=== PATIENT | male | born 1945 | race Caucasian/White ===

== ENCOUNTER 2018-07-31 10:49 | Inpatient (IN) | payer OTHER ==
[~2018-07-31] VITALS: Ht 177.8 cm; Wt 108.5 kg
--- NOTE | ~2018-07-31 | D ---
[facility] [place] [address] DISCHARGE SUMMARY Name: JOE BRYANT Room #: 209-P [facility] IN M.R.#: [id number] Admission: 07/31/18 ������������������ Attend Phys: Louis Adler MD Discharge: 08/10/18 ������������������ Date of : 41 Report #: [id number] THIS REPORT FOR: //name// CC: Louis Adler DATE OF SERVICE: 08/10/2018 FINAL DIAGNOSES: 1. Non-ST elevation myocardial infarction. 2. Coronary artery disease. 3. Cardiac bypass. 4. Diabetes type 2. 5. Hypertension. 6. Anemia of acute blood loss. HOSPITAL COURSE: The patient was admitted with chest pain, diagnosed with an NSTEMI. He was taken to the labor economics professor, which revealed diffuse coronary artery disease. Please see that result. He was recommended for cardiac bypass. He was stabilized and then taken to the operating room on the next available operating day, the following Friday. He tolerated the procedure well without incident other than the expected postoperative blood loss. His hemoglobin dipped down to 10.8, but rebounded to 12 by the time of discharge. Medically, he was treated in the usual fashion for diabetes, high blood pressure and coronary artery disease with statin, aspirin and blood pressure control. He is followed by the Cardiac and Cardiothoracic Services. He had no other interval complication. DISPOSITION: He will be transferred to a fdc unit for post-cardiac bypass rehabilitation. I have signed his transfer medications, orders and prepared all the transfer information from the facility. Follow up with me in a month after discharge from the facility and follow up with Dr. Campoverde in 2-[address] Oseguera in a month. ��������������������������������������������� ���������������������������������������� By: ��������������������������������������������� 0942 1357 Louis Adler MD /nt
[2018-07-31 10:51] VITALS: BP 141/87
[2018-07-31 11:32] LABS: ABSOLUTE NEUTROPHILS 4.5 thou/uL (1.4-8.2); BASOPHILS 0.5 % (0.0-2.0); EOSINOPHILS 3.1 % (0.0-3.0); HEMATOCRIT 44.6 % (42.0-52.0); HEMOGLOBIN 15.5 gm/dL (14.0-18.0); LYMPHOCYTES 19.7 % (24.0-44.0); MCH 30.6 pg (26.0-34.0); MCHC 34.7 g/dL (28.0-37.0); MCV 88.3 fL (80.0-100.0); MONOCYTES 11.3 % (1.0-8.0); POLYS 65.4 % (36.0-66.0); RBC 5.05 mil/uL (4.50-6.00); RDW 13.6 % (10.5-14.5); WBC 6.8 thou/uL (4.0-11.0)
[2018-07-31 11:38] LABS: CALCIUM 9.7 mg/dL (8.5-10.1); CREATININE 0.8 mg/dL (0.7-1.3); POTASSIUM 3.5 mmol/L (3.5-5.1)
[2018-07-31 11:48] LABS: TROPONIN-I 7.37 ng/mL (<0.06)
[2018-07-31 12:39] LABS: PROTIME 10.5 Seconds (9.3-11.4)
[2018-07-31 12:45] LABS: PLATELET COUNT 191 thou/uL (150-400)
[2018-07-31 13:40] VITALS: BP 124/74
[2018-07-31 13:47] VITALS: BP 131/79
--- NOTE | 2018-07-31 14:28 | 2DMMODE ---
[facility] [place] [address] 2 D/M-MODE ECHOCARDIOGRAM Name: JOE BRYANT Room #: 200-I ADM IN M.R.#: [id number] ������������� Admission: 07/31/18 ������������� Attend Phys: Rosalie Gaxiola Discharge: ��� ������������� ��� Date of : 41 Date of Service: 07/31/18 1427 �� Report #: [id number] �������� ��������������������������������������������[id number] THIS REPORT FOR: //name// APPROVED REPORT Study performed: 07/31/2018 13:12:07 EXAM: Comprehensive 2D, Doppler, and color-flow Echocardiogram Patient Location: ER Room #: 1 Status: stat BSA: 2.21 HR: 63 bpm BP: 131/79 mmHg Rhythm: NSR Other Information Study Quality: Adequate Indications Chest Pain Volumes Left Atrial Volume (Systole) Single Plane 4CH: 67.61 mL Single Plane 2CH: 61.27 mL LA ESV Index: 36.00 mL/m2 Aortic Valve AoV Peak Benedict.: 1.45 m/s AO Peak Gr.: 8.38 mmHg LVOT Max P.69 mmHg LVOT Max V: 0.96 m/s Mitral Valve E/A Ratio: 0.8 MV Decel. Time: 257.50 ms MV E Max Benedict.: 0.72 m/s MV A Benedict.: 0.87 m/s MV PHT: 74.68 ms IVRT: 156.86 ms Pulmonary Valve PV Peak Benedict.: 0.79 m/s PV Peak Gr.: 2.53 mmHg Pulmonary Vein P Vein S: 0.27 m/s P Vein A: 0.21 m/s [facility] [address] [place] [address] 2 D/M-MODE ECHOCARDIOGRAM Name: JOE BRYANT Room #: 200-I ADM IN [facility].#: [id number] ������������� Admission: 07/31/18 ������������� Attend Phys: Rosalie Gaxiola Discharge: ��� ������������� ��� Date of : 41 Date of Service: 07/31/18 1427 �� Report #: [id number] �������� ��������������������������������������������[id number] P Vein D: 0.17 m/s P Vein A Dur.: 129.2 msec P Vein S/D Ratio: 1.59 Tricuspid Valve TR Peak Benedict.: 2.06 m/s TR Peak Gr.: 16.91 mmHg PA Pressure: 17.00 mmHg Left Ventricle The left ventricle is normal size. There is normal left ventricular wall thickness. The left ventricular systolic function is normal. LVEF is 50%. Hypokinesis base of inferior and inferolateral [place] Mild diastolic dysfunction is present (impaired relaxation pattern). Right Ventricle The right ventricle is normal size. The right ventricular systolic function is normal. Atria Left atrium is dilated. The right atrium size is normal. Aortic Valve The aortic valve is normal in structure. No aortic regurgitation is present. There is no aortic valvular stenosis. Mitral Valve Mitral annular calcification Trace mitral regurgitation. No evidence of mitral valve stenosis. Tricuspid Valve The tricuspid valve is normal in structure. There is trace tricuspid regurgitation. Estimated PAP 17 mmHg plus the right atrial pressure. There is no pulmonary hypertension. Pulmonic Valve The pulmonary valve is normal in structure. There is no pulmonic valvular regurgitation. Great Vessels The aortic root is normal in size. IVC is not well visualized. Pericardium There is no pericardial effusion. [facility] [address] [place] [address] 2 D/M-MODE ECHOCARDIOGRAM Name: JOE BRYANT Room #: 200-I ADM IN .R.#: [id number] ������������� Admission: 07/31/18 ������������� Attend Phys: Rosalie Gaxiola Discharge: ��� ������������� ��� Date of : 41 Date of Service: 07/31/181426 �� Report #: [id number] �������� ��������������������������������������������[id number] <Conclusion> The left ventricular systolic function is at the lower limits of normal LVEF is 50%. Hypokinesis base of inferior and inferolateral [place] Mild diastolic dysfunction is present (impaired relaxation pattern). The aortic valve is normal in structure. No aortic regurgitation or stenosis. Mitral annular calcification. Trace mitral regurgitation. There is no pericardial effusion. ��������������������������������������������� <ELECTRONICALLY SIGNED> ���������������������������������������� By: Ochoa Hunter MD, FACC ��������������������������������������������� 07/31/18 142 26 1427 Ochoa Hunter MD, FACC /INF
[2018-07-31 15:36] LABS: ABSOLUTE NEUTROPHILS 5.9 thou/uL (1.4-8.2); BASOPHILS 0.6 % (0.0-2.0); EOSINOPHILS 2.1 % (0.0-3.0); HEMATOCRIT 45.1 % (42.0-52.0); HEMOGLOBIN 15.4 gm/dL (14.0-18.0); LYMPHOCYTES 18.6 % (24.0-44.0); MCH 30.5 pg (26.0-34.0); MCHC 34.2 g/dL (28.0-37.0); MCV 89.4 fL (80.0-100.0); MONOCYTES 10.6 % (1.0-8.0); POLYS 68.1 % (36.0-66.0); RBC 5.05 mil/uL (4.50-6.00); RDW 13.7 % (10.5-14.5); WBC 8.6 thou/uL (4.0-11.0)
[2018-07-31 15:44] VITALS: BP 122/80
--- NOTE | 2018-07-31 15:49 | CATHLAB ---
[facility] [address] [place] [address] INVASIVE PROCEDURE REPORT Name: JOE BRYANT Room #: 200-I ADM IN M.R.#: [id number] ������������� Admission: 07/31/18 ������������� Attend Phys: Rosalie Gaxiola Discharge: ��� ������������� ��� Date of : 41 Date of Service: 07/31/18 1548 �� Report #: [id number] �������� ��������������������������������������������[id number] THIS REPORT FOR: //name// APPROVED REPORT Study performed: 07/31/2018 13:32:35 Patient Details Patient Status: ED Room #: The patient is a 73 year-old male Event Personnel Jann Oseguera Environmental Professional, Eleanor Stewart RTR, CABLE TELEVISION ACCESS COORDINATOR Monitor, Donovan Gonzalez RN, Maria D Smith Procedures Performed Art Access - R femoral artery* Left Heart Cath w/or w/o Coronaries [id number] [facility] [address] Initial Mod Sed Same Phys/QHP Gr5y [id number] Hemostasis with Manual pressure Indication Non-STEMI , Dyspnea, Chest pain Risk Factors Hypercholesterolemia, Hypertension Procedure Narrative The Right Groin^ was infiltrated with 1% Lidocaine subcutaneous anesthesia. A PINNACLE 4FR Sheath #[id number] sheath was inserted into the RFA^. Coronary angiography was performed using coronary diagnostic catheters. The right coronary system was accessed and visualized with a JR4 catheter. The left coronary system was accessed and visualized with a JL4 catheter. The left ventricle was accessed and visualized with a ANGLE PIG catheter. Hemostasis was obtained with manual pressure following sheath removal without any complications. The patient tolerated the procedure well and there were no complications associated with the procedure. There was no hematoma. Intraoperative Conscious Sedation Sedation start time: 1356 Case end Time: 1440 Fentanyl 25 mcg Versed 1 mg Fluoro Time: 2.00 minutes [facility] [place] [address] INVASIVE PROCEDURE REPORT Name: MANNYJOE Room #: 200-I ADM IN [facility].#: [id number] ������������� Admission: 07/31/18 ������������� Attend Phys: Rosalie Gaxiola Discharge: ��� ������������� ��� Date of : 41 Date of Service: 07/31/18 1548 �� Report #: [id number] �������� ��������������������������������������������[id number] Dose: DAP 3439.90 cGycm2 453 mGy Contrast Type and Amount: Omnipaque 115 ml Coronary Angiography The patient's coronary anatomy is co- dominant. Diagnostic Cath Left Main This is a large caliber vessel, patent with no flow-limiting lesions. LAD After supplying a moderate size septal patternmaker plastics in the midsegment of the LAD, there is a subtotal occlusion. The mid and distal segments of the LAD are filled via collateral circulation. Diagonal 1 There is a severe occlusion in the proximal segment. Circumflex This is a codominant vessel. OM1 This is a moderate size caliber vessel with a severe proximal stenosis. OM2 This is a moderate size caliber vessel with a severe proximal stenosis. OM3 The distal vessel is a small-caliber vessel with moderate diffuse disease. Right Coronary This vessel is totally occluded in the proximal segment. R PDA This vessel is well filled via collateral circulation from the left coronary artery. Left Ventriculography The left ventricle is normal in size with decreased contractility. The left ventricular ejection fraction is estimated to be 40-45%. There is hypokinesis in the mid to apical inferior segment. Hemodynamics The aortic pressure is 133/74 mmHg with a mean of 98 mmHg. The left ventricular pressure is 145/11 mmHg with a mean of mmHg. The left ventricular end diastolic pressure is 28 mmHg. Conclusion 1. Severe multivessel coronary artery disease. 2. Mild to moderate segmental LV dysfunction. [facility] [address] [place] [address] INVASIVE PROCEDURE REPORT Name: JOE BRYANT Room #: 200-I ADM IN M.R.#: [id number] ������������� Admission: 07/31/18 ������������� Attend Phys: Rosalie Gaxiola Discharge: ��� ������������� ��� Date of : 41 Date of Service: 07/31/18 1548 �� Report #: [id number] �������� ��������������������������������������������[id number] 3. Recommend aggressive risk factor management and CV surgical consultation for bypass surgery. ��������������������������������������������� <ELECTRONICALLY SIGNED> ���������������������������������������� By: Jann Oseguera MD ��������������������������������������������� 07/31/18 1548 1548 1548 Jann Oseguera MD /INF
[2018-07-31 16:00] LABS: LARGE PLATELETS FEW; PLATELET COUNT 177 thou/uL (150-400)
--- NOTE | 2018-07-31 16:42 | EKG ---
[address] [address] ELECTROCARDIOGRAM REPORT Name: JOE BRYANT Room #: 200-I ADM IN M.R.#: [id number] ������������������ Admission: 07/31/18 ������������������ Attend Phys: Louis Adler MD Discharge: ������������������ Date of : 41 Report #: [id number] ����������������������������������������������������������������� [id number] THIS REPORT FOR: //name// [facility] ED Test Date: 2018-07-31 Test Time: 11:38:59 Pat Name: JOE BRYANT Department: Room: 200 Gender: M Radiologic Therapist: JASON : 1945 Requested By: Jamshid Johns Order Number: [id number] MD: Jann Oseguera Measurements Intervals [place] Rate: 67 P: -15 MA: 157 QRS: -41 QRSD: 97 T: 60 QT: 419 QTc: 443 Interpretive Statements Sinus rhythm Nonspecific ST segment abnormality Electronically Signed On 07-31-2018 16:42:49 CDT by Jann Oseguera [email or web address] ��������������������������������������������� <ELECTRONICALLY SIGNED> ���������������������������������������� By: Jann Oseguera MD ��������������������������������������������� 07/31/18 1642 1138 1138 Jann Oseguera MD /EPI
--- NOTE | 2018-07-31 16:44 | EKG ---
[place] [address] [facility] [place] [address] ELECTROCARDIOGRAM REPORT Name: JOE BRYANT Room #: 200-I ADM IN M.R.#: [id number] ������������������ Admission: 07/31/18 ������������������ Attend Phys: Louis Adler MD Discharge: ������������������ Date of : 41 Report #: [id number] ����������������������������������������������������������������� [id number] THIS REPORT FOR: //name// [facility] ED Test Date: 2018-07-31 Test Time: 11:59:35 Pat Name: JOE BRYANT Department: Room: 200 Gender: M Marketing Operations Manager: JASON : 1945 Requested By: Jamshid Johns Order Number: [id number] MD: Jann Oseguera Measurements Intervals [place] Rate: 66 P: -25 [place]: 153 QRS: -44 QRSD: 99 T: 61 QT: 422 QTc: 443 Interpretive Statements Sinus rhythm Left axis deviation Borderline low voltage, extremity leads No previous ECG available for comparison Electronically Signed On 07-31-2018 16:43:50 CDT by Jann Oseguera [email or web address] ��������������������������������������������� <ELECTRONICALLY SIGNED> ���������������������������������������� By: Jann Oseguera MD ��������������������������������������������� 07/31/18 1643 1159 1159 Jann Oseguera MD /GEOFFREY
--- NOTE | 2018-07-31 18:30 | NUR ---
PT TO THE UNIT POST CARDIAC CATH. NO INTERVENTION COMPLETED - PT NEEDING OPEN HEART SURGERY WHICH WILL BE DONE ON FRIDAY. SEEN BY DR DARDEN THIS AFTERNOON. ORDERES NOTED FOR SURGERY ON FRIDAY. GROIN STABLE - VSS - PETRA DIET AND FLUIDS. IV FLUIDS INFUCSION ORDERED - PT HAS VOIDED POST PROCEDURE. NO CO'S AT THE PRESENT TIME.
[2018-07-31 20:23] VITALS: BP 141/86
[2018-08-01 01:07] LABS: GLYCOHEMOGLOBIN (HGB A1C) 5.9 % (4.8-5.6)
[2018-08-01 01:08] VITALS: BP 154/81
[2018-08-01 04:05] VITALS: BP 132/80
[2018-08-01 05:01] LABS: HEMATOCRIT 42.8 % (42.0-52.0); HEMOGLOBIN 14.7 gm/dL (14.0-18.0); MCH 30.6 pg (26.0-34.0); MCHC 34.2 g/dL (28.0-37.0); MCV 89.5 fL (80.0-100.0); RBC 4.79 mil/uL (4.50-6.00); RDW 13.8 % (10.5-14.5); WBC 7.1 thou/uL (4.0-11.0)
--- NOTE | 2018-08-01 05:24 | NUR ---
ASSUMED PT CARE AT 1900 WITH BEDSIDE REPORT TAKEN. PT IS ALERT AND ORIENTED WITH NO SIGN OF DISTRESS NOTED IN PT. PT IS STABLE. VITAL SIGNS STABLE. RIGHT GROIN SITE FROM CARDIAC CATH IS CLEAN DRIED AND INTACT. SCHEDULED MEDS ADMINISTERED TO PT. PT IS STABLE THROUGHOUT THE NIGHT. DENIES ANY FURTHER NEEDS AT THIS TIME.
[2018-08-01 05:26] LABS: ALBUMIN 3.4 g/dL (3.4-5.0); ANION GAP 8 mmol/L (7-16); BUN 14 mg/dL (7-18); CALCIUM 8.4 mg/dL (8.5-10.1); CHLORIDE 103 mmol/L (98-107); CHOLESTEROL 146 mg/dL (<200); CO2 31 mmol/L (21-32); CREATININE 0.9 mg/dL (0.7-1.3); GLUCOSE 118 mg/dL (74-106); HDL CHOLESTEROL 42 mg/dL (>40); LDL CHOLESTEROL 86 mg/dL (<100); POTASSIUM 3.4 mmol/L (3.5-5.1); SGOT 65 U/L (15-37); SGPT 31 U/L (30-65); SODIUM 142 mmol/L (136-145); TC:HDL 3.5 Ratio (Not establshd); TOTAL BILIRUBIN 0.9 mg/dL (<0.1-1.0); TOTAL PROTEIN 6.4 g/dL (6.4-8.2); TRIGLYCERIDE 92 mg/dL (<150); VLDL 18 mg/dL (<40)
[2018-08-01 05:42] LABS: SERUM ASSESSMENT Clear
[2018-08-01 05:57] LABS: URINE BILIRUBIN NEGATIVE (Negative); URINE BLOOD NEGATIVE (Negative); URINE CLARITY CLEAR; URINE COLOR YELLOW; URINE GLUCOSE-RANDOM* NEGATIVE (Negative); URINE KETONES NEGATIVE (Negative); URINE LEUKOCYTES-REFLEX NEGATIVE (Negative); URINE NITRITE-REFLEX NEGATIVE (Negative); URINE PROTEIN (DIPSTICK) NEGATIVE (Negative); URINE UROBILINOGEN 0.2 E.U./dl (0.2-1.0)
--- NOTE | 2018-08-01 08:06 | H ---
[facility] [place] [address] HISTORY AND PHYSICAL Name: JOE BRYANT Room #: 200-I ADM IN M.R.#: [id number] Admission: 07/31/18 ������������������ Attend Phys: Louis Adler MD Discharge: ������������������ Date of : 41 Report #: [id number] THIS REPORT FOR: //name// CC: Louis Adler DATE OF SERVICE: 07/31/2018 CHIEF COMPLAINT: Chest pain. HISTORY OF PRESENT ILLNESS: The patient is a 73-year-old gentleman who presented to the Emergency Room with left-sided chest pain, radiating across to the right side, he said, for about the last day. He has had some upper respiratory symptoms with sinus drainage and productive cough and he has been using [id number] Coricidin HBP. He said he was out with his last night and was walking around and experienced left-sided chest pain. He thought it might have been from the medication, but the pain persisted all evening and through the night. He awoke with pain this morning and called me some time around 10:30 and I directed him to the Emergency Room. Evaluation has revealed a non-ST segment elevation myocardial infarction. PAST MEDICAL HISTORY: Hypertension; diabetes type 2, it is stable on diet control; peripheral neuropathy; chronic low back pain due to lumbar spinal stenosis. PAST SURGICAL HISTORY: None. FAMILY HISTORY: Noncontributory. SOCIAL HISTORY: Denies any chronic alcohol or tobacco use. ALLERGIES: CARDURA. MEDICATIONS: He does not have his home medication list available. REVIEW OF SYSTEMS: He complains of sinus drainage and nonproductive cough. No headache, shortness of breath, abdominal pain, nausea, vomiting, diarrhea, constipation, dysuria, syncope. OBJECTIVE: VITAL SIGNS: Temperature 36.9, pulse 77, respirations 16, blood pressure 141/87, O2 sat 98% on room air. GENERAL: He is awake and alert, in no distress. HEAD AND NECK: Unremarkable. LUNGS: Clear. HEART: Regular. ABDOMEN: Obese, soft, normoactive bowel sounds. [facility] [address] [place] [address] HISTORY AND PHYSICAL Name: JOE BRYANT Room #: 200-I ADM IN .R.#: [id number] Admission: 07/31/18 ������������������ Attend Phys: Louis Adler MD Discharge: ������������������ Date of : 41 Report #: [id number] EXTREMITIES: No edema. NEUROLOGIC: He is alert and oriented. Global strength intact. LABORATORY DATA: Reviewed. Troponin is 7.37. ASSESSMENT: 1. Non-ST segment elevation myocardial infarction. 2. Hypertension. 3. Obstructive sleep apnea, not on CPAP. 4. Diabetes type 2, on diet control. 5. Peripheral neuropathy. 6. Chronic low back pain due to lumbar spinal stenosis. PLAN: He will be admitted to CCU and Dr. Oseguera will see him in consultation. I understand there are plans for cardiac catheterization later today. ��������������������������������������������� <ELECTRONICALLY SIGNED> ���������������������������������������� By: Louis Adler MD ��������������������������������������������� 08/01/18 0806 1336 1400 Louis Adler MD /ada
[2018-08-01 08:47] VITALS: BP 139/73
--- NOTE | 2018-08-01 09:10 | EKG ---
[place] [address] [facility] [place] [address] ELECTROCARDIOGRAM REPORT Name: JOE BRYANT Room #: 200-I ADM IN M.R.#: [id number] ������������������ Admission: 07/31/18 ������������������ Attend Phys: Louis Adler MD Discharge: ������������������ Date of : 41 Report #: [id number] ����������������������������������������������������������������� [id number] THIS REPORT FOR: //name// [facility] Test Date: 2018-08-01 Test Time: 07:59:17 Pat Name: JOE BRYANT Department: Room: 200 I Gender: M Curriculum Manager: DEL : 1945 Requested By: Sue Campuzano Order Number: [id number] MD: Jann Oseguera Measurements Intervals [place] Rate: 67 P: -24 [place]: 155 QRS: -40 QRSD: 103 T: 105 QT: 399 QTc: 422 Interpretive Statements Sinus rhythm Abnormal R-wave progression, early transition Inferior infarct, old Nonspecific T-wave abnormalities Compared to ECG 07/31/2018 11:59:35 Left-axis deviation no longer present Electronically Signed On 08-01-2018 9:10:30 CDT by Jann Oseguera [email or web address] ��������������������������������������������� <ELECTRONICALLY SIGNED> ���������������������������������������� By: Jann Oseguera MD ��������������������������������������������� 08/01/18 0910 0759 0759 Jann Oseguera MD /GEOFFREY
[2018-08-01 11:52] VITALS: BP 132/71
--- NOTE | 2018-08-01 15:22 | NUR ---
PT IS ALERT AND ORIENTED X4. LUNGS ARE CLEAR. AND ON ROOM AIR. SITING UP IN THE CHAIR. NSR ON THE BOWLING PIN SETTERS INSTALLER. EATING A HEART HEALTHY DIET. VOIDS PER URINAL UP AD TEQUILA IN THE ROOM. NEEDS TO SHAVE AND TAKE A BATH TODAY WILL INSTRUCT PT TO TAKE AND BATH AND SHAVE BEING ITS NECESSARY. WILL CONTINUE TO ASSESS AND MONITOR PER KARLENE
[2018-08-01 15:43] VITALS: BP 131/76
[2018-08-01 19:40] VITALS: BP 142/97
--- NOTE | 2018-08-02 00:37 | NUR ---
ASSESSMENTS CHARTED. PATIENT IS UP AD TEQUILA IN ROOM. STAYING FOR CABG SCHEDULED FOR FRIDAY. CONSENTS SIGNED. DENIES CHEST PAIN.
[2018-08-02 02:08] LABS: GLYCOHEMOGLOBIN (HGB A1C) 6.2 % (4.8-5.6)
[2018-08-02 04:55] VITALS: BP 118/56
[2018-08-02 05:29] LABS: CALCIUM 8.6 mg/dL (8.5-10.1); CREATININE 0.8 mg/dL (0.7-1.3); POTASSIUM 3.5 mmol/L (3.5-5.1)
[2018-08-02 07:21] VITALS: BP 122/85
[2018-08-02 11:38] VITALS: BP 116/77
--- NOTE | 2018-08-02 14:48 | NUR ---
ASSUMED CARE AT SHIFT CHANGE ALERT AND ORIENTED X4. PLAESANT DENIES ANY DISCOMFORT AND VSS. AND WILL CONTINUE WITH POC
[2018-08-02 17:08] VITALS: BP 141/82
[2018-08-02 19:24] VITALS: BP 123/65
[2018-08-03] VITALS (9 sets, daily range): BP systolic 71–133; BP diastolic 40–87
--- NOTE | 2018-08-03 01:43 | NUR ---
ASSESSMENT CHARTED. PATIENT TOOK HIPACLENS SHOWER TONIGHT, TO BE REPEATED AT 0500 IN AM PRIOR TO CABG SURGERY. NPO SINCE MIDNIGHT. VSS.
[2018-08-03 03:40] LABS: HEMATOCRIT 41.5 % (42.0-52.0); HEMOGLOBIN 14.2 gm/dL (14.0-18.0); MCH 30.3 pg (26.0-34.0); MCHC 34.1 g/dL (28.0-37.0); RBC 4.67 mil/uL (4.50-6.00); RDW 13.2 % (10.5-14.5); WBC 8.7 thou/uL (4.0-11.0)
[2018-08-03 12:36] LABS: MCH 30.7 pg (26.0-34.0); MCHC 34.8 g/dL (28.0-37.0); MCV 88.3 fL (80.0-100.0); RBC 3.27 mil/uL (4.50-6.00); RDW 13.1 % (10.5-14.5); WBC 12.8 thou/uL (4.0-11.0)
[2018-08-03 12:38] LABS: HEMATOCRIT 28.9 % (42.0-52.0); HEMOGLOBIN 10.1 gm/dL (14.0-18.0)
[2018-08-03 12:54] LABS: INR 1.4
[2018-08-03 12:55] LABS: APTT 31.2 Seconds (24.5-32.8); FIBRINOGEN 251.7 mg/dL (210-360); PROTIME 14.5 Seconds (9.3-11.4)
[2018-08-03 13:14] LABS: POC BE 5 mmol/L (-2.0 to +3.0); POC CA IONIZED 4.1 mg/dL (4.5-5.3); POC GLUCOSE 173 mg/dL (70-99); POC HCO3 28.4 mmol/L (22.0-26.0); POC HEMOGLOBIN 9.5 g/dL (14.0-18.0); POC POTASSIUM 3.8 mmol/L (3.5-5.1); POC SODIUM 140 mmol/L (136-145); POC pCO2 37.5 mmHg (35.0-45.0); POC pH 7.487 (7.360-7.450)
[2018-08-03 13:14] LABS: POC BE 5 mmol/L (-2.0 to +3.0); POC CA IONIZED 4.4 mg/dL (4.5-5.3); POC GLUCOSE 138 mg/dL (70-99); POC HCO3 28.5 mmol/L (22.0-26.0); POC HEMOGLOBIN 12.6 g/dL (14.0-18.0); POC POTASSIUM 3.6 mmol/L (3.5-5.1); POC SODIUM 140 mmol/L (136-145); POC pH 7.494 (7.360-7.450)
[2018-08-03 13:14] LABS: POC BE -1 mmol/L (-2.0 to +3.0); POC CA IONIZED 4.3 mg/dL (4.5-5.3); POC GLUCOSE 147 mg/dL (70-99); POC HCO3 23.9 mmol/L (22.0-26.0); POC HEMOGLOBIN 11.2 g/dL (14.0-18.0); POC POTASSIUM 3.3 mmol/L (3.5-5.1); POC SODIUM 142 mmol/L (136-145); POC pH 7.418 (7.360-7.450)
[2018-08-03 13:14] LABS: POC BE 2 mmol/L (-2.0 to +3.0); POC CA IONIZED 4.1 mg/dL (4.5-5.3); POC GLUCOSE 166 mg/dL (70-99); POC HCO3 26.2 mmol/L (22.0-26.0); POC HEMOGLOBIN 8.8 g/dL (14.0-18.0); POC POTASSIUM 3.9 mmol/L (3.5-5.1); POC SODIUM 139 mmol/L (136-145); POC pCO2 37.7 mmHg (35.0-45.0)
[2018-08-03 13:14] LABS: POC BE 1 mmol/L (-2.0 to +3.0); POC CA IONIZED 4.1 mg/dL (4.5-5.3); POC GLUCOSE 134 mg/dL (70-99); POC HCO3 25.2 mmol/L (22.0-26.0); POC HEMOGLOBIN 10.2 g/dL (14.0-18.0); POC SODIUM 140 mmol/L (136-145); POC pCO2 39.4 mmHg (35.0-45.0); POC pH 7.414 (7.360-7.450)
[2018-08-03 13:14] LABS: POC BE 5 mmol/L (-2.0 to +3.0); POC GLUCOSE 137 mg/dL (70-99); POC HCO3 29.2 mmol/L (22.0-26.0); POC HEMOGLOBIN 10.2 g/dL (14.0-18.0); POC SODIUM 139 mmol/L (136-145); POC pCO2 41.2 mmHg (35.0-45.0); POC pH 7.459 (7.360-7.450)
[2018-08-03 13:14] LABS: POC BE 6 mmol/L (-2.0 to +3.0); POC CA IONIZED 4.1 mg/dL (4.5-5.3); POC GLUCOSE 175 mg/dL (70-99); POC HCO3 29.4 mmol/L (22.0-26.0); POC HEMOGLOBIN 9.9 g/dL (14.0-18.0); POC POTASSIUM 3.8 mmol/L (3.5-5.1); POC SODIUM 139 mmol/L (136-145); POC pCO2 39.9 mmHg (35.0-45.0); POC pH 7.475 (7.360-7.450)
[2018-08-03 13:14] LABS: POC BE 3 mmol/L (-2.0 to +3.0); POC CA IONIZED 4.3 mg/dL (4.5-5.3); POC GLUCOSE 138 mg/dL (70-99); POC HCO3 27.9 mmol/L (22.0-26.0); POC HEMOGLOBIN 11.9 g/dL (14.0-18.0); POC POTASSIUM 3.7 mmol/L (3.5-5.1); POC SODIUM 139 mmol/L (136-145); POC pCO2 44.7 mmHg (35.0-45.0); POC pH 7.403 (7.360-7.450)
[2018-08-03 13:14] LABS: POC BE -1 mmol/L (-2.0 to +3.0); POC CA IONIZED 4.5 mg/dL (4.5-5.3); POC GLUCOSE 163 mg/dL (70-99); POC HCO3 23.5 mmol/L (22.0-26.0); POC HEMOGLOBIN 9.5 g/dL (14.0-18.0); POC POTASSIUM 3.3 mmol/L (3.5-5.1); POC SODIUM 141 mmol/L (136-145); POC pCO2 34.8 mmHg (35.0-45.0); POC pH 7.437 (7.360-7.450)
[2018-08-03 13:33] LABS: BE(vivo) -2.6 mmol/L (-2 to +3); HCO3 21.8 mmol/L (22.0-26.0); PCO2 36.6 mmHg (35.0-45.0); PO2 114.6 mmHg (80.0-100.0); pH 7.393 (7.360-7.450); sO2 98.2 % (92.0-98.0)
[2018-08-03 13:41] LABS: HEMOGLOBIN 11.8 gm/dL (14.0-18.0); MCH 30.8 pg (26.0-34.0); MCHC 34.6 g/dL (28.0-37.0); MCV 88.9 fL (80.0-100.0); RBC 3.82 mil/uL (4.50-6.00); RDW 13.6 % (10.5-14.5); WBC 14.3 thou/uL (4.0-11.0)
[2018-08-03 13:50] LABS: CALCIUM 7.6 mg/dL (8.5-10.1); CREATININE 0.9 mg/dL (0.7-1.3); MAGNESIUM 2.5 mg/dL (1.8-2.4); POTASSIUM 3.3 mmol/L (3.5-5.1)
[2018-08-03 13:55] LABS: INR 1.2; PROTIME 12.8 Seconds (9.3-11.4)
--- NOTE | 2018-08-03 15:35 | NUR ---
PATIENT BACK FROM O.R. AT 1330 S/P CABG X5, ON THE VENT AND SEDATED. TITRATING SEDATION TOLERATED FOR VENT MANAGEMENT. WAS HYPOTENSIVE INITIALLY AND ALBUMIN ADMINISTERED AND STARTED ON LEVO FOR ABOUT AN HOUR. NOW BP STABLE AND C.O AND C.I WITHIN NORMAL LIMITS. MEDICATED FOR PAIN WITH PRN MEDS. SWAN YAMILA, A-LINE, CHEST TUBES, AND BEKA VAC DOCUMENTED. PACEMAKER WAS ON WITH BACK UP RATE OF 60 INITIALLY AND TURNED DOWN TO 50. PATIENT IS AT R. SPOUSE UPDATED. WILL CONTINUE TO MONITOR CLOSELY AND START THE PROCESS OF EARLY EXTUBATION WHEN MORE AWAKE.
[2018-08-03 16:21] LABS: BE(vivo) -2.2 mmol/L (-2 to +3); HCO3 22.8 mmol/L (22.0-26.0); PCO2 39.9 mmHg (35.0-45.0); PO2 102.4 mmHg (80.0-100.0); pH 7.375 (7.360-7.450); sO2 97.6 % (92.0-98.0)
--- NOTE | 2018-08-03 16:38 | NUR ---
CPAP TRIAL SUCCESSFUL, ABG RESULTS REVIEWED AND PATIENT EXTUBATED AT 1630 BY R.T. AND PLACED ON FACE SHIELD.
--- NOTE | 2018-08-03 16:53 | HC ---
[facility] [place] [address] CONSULTATION Name: JOE BRYANT Room #: 244-P ADM IN M.R.#: [id number] Admission: 07/31/18 ������������������ Attend Phys: Louis Adler MD Discharge: ������������������ Date of : 43 Report #: [id number] THIS REPORT FOR: //name// CC: Louis Adler DATE OF SERVICE: 07/31/2018 REQUESTING PHYSICIAN: We were asked by Dr. Oseguera to see the patient. HISTORY OF PRESENT ILLNESS: The patient is a 73-year-old with coronary artery disease. The patient presented with a new symptom which is chest pain radiating across the upper chest to the right side, happening at rest. The patient also states he had some upper respiratory symptoms and sinus drainage and had been taking gezz-kmk-fxbavyk cold medicine. The patient had persistence of the pain and came to the Emergency Department. Evaluation in the ER showed a non-ST elevation myocardial infarct. HOSPITAL COURSE: Includes cardiac catheterization today that shows important 3-vessel coronary artery disease with total occlusion of the mid right coronary artery, total occlusion of the mid left anterior descending with distal filling by collaterals and high-grade lesions in two circumflex marginals. There was anterior wall akinesis, but ejection fraction has been described at 50%. PAST HISTORY: Significant for hypertension, diabetes mellitus type 2 with peripheral neuropathy and chronic low back pain. The patient also has sleep apnea and has had uvulectomy. FAMILY HISTORY: Reveals father had coronary artery bypass surgery, in his 70s. Mother in her 90s with a stroke. SOCIAL HISTORY: The patient denies chronic alcohol or tobacco use. ALLERGIES: CARDURA. MEDICATION AT HOME: Includes Neurontin, Norvasc, irbesartan, Xalatan, ____ and Medox. REVIEW OF SYSTEMS: GENERAL: The patient denies fatigue or fever. HEAD: No headaches. EYES: No visual change. ENT: The patient has had sinus drainage and cough. PULMONARY: Nonproductive cough with chest pain as mentioned. CARDIAC: As mentioned chest pain, no palpitations. GASTROINTESTINAL: No nausea, vomiting blood. GENITOURINARY: No urgency, frequency, blood. [facility] [address] [place] [address] CONSULTATION Name: JOE BRYANT Room #: 244-P [facility] IN M.R.#: [id number] Admission: 07/31/18 ������������������ Attend Phys: Louis Adler MD Discharge: ������������������ Date of : 43 Report #: [id number] MUSCULOSKELETAL: Denies bone and joint problems. NEUROLOGIC: Complains of peripheral neuropathy in feet and in the fifth finger of the left hand. ENDOCRINE: No goiter. No tremors. HEMATOLOGIC: No anemia, no bruisability. PSYCHIATRIC: No depression, no anxiety. PHYSICAL EXAMINATION: GENERAL: The patient is a pleasant fellow with an endomorphic habitus. VITAL SIGNS: Temperature 36.5, blood pressure 122/80, heart rate 66, respiratory rate 18, O2 sat 100 on room air. HEENT: No scleral icterus, no arcus. Full coe present. NECK: No mass, no bruit. CHEST: Clear. HEART: Rhythm is regular. Heart tones somewhat distant with increased AP diameter of chest. ABDOMEN: Soft, no mass, no tenderness. EXTREMITIES: No clubbing, cyanosis or edema, 2+ right posterior tibial pulse and 2+ left dorsalis pedis pulse. No obvious saphenous vein problems. SKIN: No rash or infection. MUSCULOSKELETAL: No bony or limb asymmetry or deformity. PSYCHIATRIC: Oriented and appropriate, shows insight into problem, answers questions appropriately ASSESSMENT AND PLAN: The patient has important 3-vessel coronary artery disease with mildly reduced ventricular function and history of diabetes mellitus in the setting of a non-ST elevation infarct. Risks and details of coronary artery bypass surgery were discussed. Options and alternatives were reviewed. The patient understands that risks include but are not limited to bleeding, infection, anesthesia risks, heart and lung problems, stroke and and he wishes to proceed with surgery as advised. We plan operation for Friday morning. Thank you for the consult. ��������������������������������������������� <ELECTRONICALLY SIGNED> ���������������������������������������� By: Orlando Campoverde MD ��������������������������������������������� 08/03/18 1653 1559 190 Orlando Campoverde MD /nt
[2018-08-03 17:36] LABS: BE(vivo) -2.9 mmol/L (-2 to +3); HCO3 21.2 mmol/L (22.0-26.0); PCO2 34.7 mmHg (35.0-45.0); PO2 91.3 mmHg (80.0-100.0); pH 7.404 (7.360-7.450); sO2 97.1 % (92.0-98.0)
[2018-08-04] VITALS (16 sets, daily range): BP systolic 81–113; BP diastolic 45–62
[2018-08-04 05:36] LABS: HEMATOCRIT 33.8 % (42.0-52.0); HEMOGLOBIN 11.2 gm/dL (14.0-18.0); MCH 30.7 pg (26.0-34.0); MCHC 33.3 g/dL (28.0-37.0); MCV 92.3 fL (80.0-100.0); RBC 3.66 mil/uL (4.50-6.00); RDW 13.9 % (10.5-14.5); WBC 11.5 thou/uL (4.0-11.0)
[2018-08-04 05:48] LABS: CALCIUM 7.7 mg/dL (8.5-10.1); CREATININE 0.9 mg/dL (0.7-1.3); MAGNESIUM 2.6 mg/dL (1.8-2.4); POTASSIUM 3.6 mmol/L (3.5-5.1)
--- NOTE | 2018-08-04 06:41 | NUR ---
ASSUMED CARE OF PT AT 1900. PT ALERT AND ORIENTED X4. SR ON THE MONITOR. PT ON LOW DOSE CARDENE THROUGH OUT THE NIGHT. TITRATED OFF AT 0600. VSS. GOOD UO. PT C/O CHEST PAIN THROUGH OUT SHIFT. PAIN MEDS GIVEN ORDERED. SURGICAL DRESSING C/D/I. THIS AM PT WAS ABLE TO GET UP TO CHAIR AND SIT. TOLERATING WELL. PT MAKING GOOD PROGRESS TOWARDS GOALS.
--- NOTE | 2018-08-04 09:06 | NUR ---
Nutrition: RD received consult for diet instruction POD [address] will followup to determine education needs when out of ICU/closer to D/C.
--- NOTE | 2018-08-04 11:02 | NUR ---
PATIENT REMAINS A&O X 4, PLEASANT AND COOPERATIVE WITH CARES. HAS NOT REALLY C/O MUCH PAIN. MOST OF HIS PAIN IS COMING FROM LEFT LATERAL CHEST TUBE SITE. SWAN AND ART LINE DISCONTINUED PER ORDERS. PATIENT TOLERATED IT WELL. PATIENT UP IN CHAIR AND STATES THAT HE LIKES IT BETTER THAN THE BED. PATIENT KWIFE AT BEDSIDE FOR MOST OF THE MORNING, PATIENT AND FUSS AND AGRUE FREQUENTLY. NO OTHER CONCERNS AT THIS TIME. WILL CONTINUE TO MONITOR AND CARE PER PLAN OF CARE.
--- NOTE | 2018-08-04 14:27 | NUR ---
Met with patient he admits with chest pain, CAD and post CABG in ICU. 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 He has a cane as needed. 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 He lives alone in multilevel home. He has steps to bedroom. Reviewed role of casemgt PCP Dr Adler. Isela zimmer in process, casemgt following.
--- NOTE | 2018-08-04 17:01 | EKG ---
[address] [place] [address] ELECTROCARDIOGRAM REPORT Name: JOE BRYANT Room #: 244-P ADM IN M.R.#: [id number] ������������������ Admission: 07/31/18 ������������������ Attend Phys: Louis Adler MD Discharge: ������������������ Date of : 43 Report #: [id number] ����������������������������������������������������������������� [id number] THIS REPORT FOR: //name// 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: Rosalie MAYES : 1945 Requested By: Darrell Whalen Order Number: [id number] MD: Ochoa Hunter Measurements Intervals [place] Rate: 72 P: 42 [place]: 186 QRS: -23 QRSD: 94 T: QT: 411 QTc: 450 Interpretive Statements Sinus rhythm Early R-wave progression Inferior infarct, old Compared to ECG 08/01/2018 07:59:17 No significant change was found Electronically Signed On 08-04-2018 17:00:54 CDT by Ochoa Hunter [email or web address] ��������������������������������������������� <ELECTRONICALLY SIGNED> ���������������������������������������� By: Ochoa Hunter MD, [facility] ��������������������������������������������� 08/04/18 1700 1503 1503 Ochoa Hunter MD, FAC /EPI
[2018-08-05] VITALS (19 sets, daily range): BP systolic 92–147; BP diastolic 48–81
[2018-08-05 05:33] LABS: HEMATOCRIT 31.5 % (42.0-52.0); HEMOGLOBIN 10.8 gm/dL (14.0-18.0); MCH 30.7 pg (26.0-34.0); MCHC 34.3 g/dL (28.0-37.0); MCV 89.4 fL (80.0-100.0); RBC 3.52 mil/uL (4.50-6.00); RDW 13.7 % (10.5-14.5); WBC 11.5 thou/uL (4.0-11.0)
[2018-08-05 05:42] LABS: CALCIUM 7.8 mg/dL (8.5-10.1); CREATININE 1.2 mg/dL (0.7-1.3); POTASSIUM 3.7 mmol/L (3.5-5.1)
--- NOTE | 2018-08-05 07:05 | NUR ---
SHIFT NOTE PT ALERT AND ORRIENTED. SITTING IN CHAIR TRANSFERED ASSISTX1 TO BED. TURNED Q2H AND PRN. PT CLEANED UP DURING SHIFT. COMPLAINTS OF PAIN MEDS GIVEN ORDERED. BP WATCH CLOSELY DURING SHIFT. NO COMPLAINTS OF N/V CHEST PAIN, OR SOA. PT CHEST PT TO -20 NO S/SX OF AIR LEAK, SUBQ AIR, AND CT UNCLAMPED. PT O2 TITRATED DURSING SHIFT. PT WILL CONTINUE TO BE MONITORED TILL THE END OF THE SHIFT.
--- NOTE | 2018-08-05 15:07 | NUR ---
PACER WIRES AND PLEURAL CHEST TUBE REMOVED BY JESSICA WU. PT TOLERATED WELL. PT UP TO CHAIR TWICE AND HAS AMBULATED IN HALLWAY THIS SHIFT. PAIN MEDS EFFECTIVE. ORDERS FOR TRANSFER TO CCU, AWAITING BED
[2018-08-06 00:15] VITALS: BP 142/70
--- NOTE | 2018-08-06 00:30 | NUR ---
PT HAD CABG X5 TWO DAYS AGO. PT IS UP IN THE CHAIR AND REPORTED NO PAIN UNTIL MN; AT MN, PT C/O MODERATE PAIN IN ABD. PT C/O FEELING BLOATED AND SAID HE NEEDS TO HAVE A BM, BUT HAS NOT BEEN ABLE TO. PT WAS GIVEN MIRALAX DURING DAYSHIFT. PT ENCOURAGED TO USE INCENTIVE SPIROMETER. PT WAS ON SOME O2 PER NC DUE TO O2 DESATURATION WHILE SLEEPING DURING THE DAY. PT TX'D TO CCU SHORTLY AFTER MN. REPORT GIVEN AT 1610.
[2018-08-06 04:45] VITALS: BP 134/66
--- NOTE | 2018-08-06 04:48 | NUR ---
PT. TRANSFER FROM ICU AT 0000; AOX4; C/O ABDOMINAL; ST. NO ABLE TO PASS GAS FREQUENTLY; DRESSINGS DRY INTACT; NO DRAINAGE; VS WNL; EDUCATED ABOUT CALLING BEFORE STANDING UP; ST. UNDERSTANDING; REQUESTED TO USE THE BED SIDE COMMODE; ST. PASSING LITTLE GAS; VS WNL; SR THROUGH THE NIGHT; ASSESSMENT CHARGED; FOLLOWING POC; WILL KEEP MONITORING
[2018-08-06 08:00] VITALS: BP 143/72
--- NOTE | 2018-08-06 09:26 | EKG ---
[address] [place] [address] ELECTROCARDIOGRAM REPORT Name: JOE BRYANT Room #: 209-P ADM IN M.R.#: [id number] ������������������ Admission: 07/31/18 ������������������ Attend Phys: Louis Adler MD Discharge: ������������������ Date of : 43 Report #: [id number] ����������������������������������������������������������������� [id number] THIS REPORT FOR: //name// 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 : 1945 Requested By: Darrell Whalen Order Number: [id number] MD: Ochoa Hunter Measurements Intervals [place] Rate: 79 P: 5 [place]: 155 QRS: -31 QRSD: 90 T: -27 QT: 399 QTc: 458 Interpretive Statements Sinus rhythm Inferior infarct, old Abnormal lateral Q waves Compared to ECG 08/01/2018 07:59:17 Q waves now present Electronically Signed On 08-06-2018 9:25:55 CDT by Ochoa Hunter [email or web address] ��������������������������������������������� <ELECTRONICALLY SIGNED> ���������������������������������������� By: Ochoa Hunter MD, [facility] ��������������������������������������������� 08/06/18 0925 8 8 Ochoa Hunter MD, FAC /EPI
[2018-08-06 12:11] VITALS: BP 111/62
--- NOTE | 2018-08-06 12:16 | O ---
[facility] [place] [address] OPERATIVE REPORT Name: JOE BRYANT Room #: 209-P ADM IN M.R.#: [id number] Admission: 07/31/18 ������������������ Attend Phys: Louis Adler MD Discharge: ������������������ Date of : 43 Report #: [id number] THIS REPORT FOR: //name// CC: Louis Adler DATE OF SERVICE: 08/03/2018 PREOPERATIVE DIAGNOSIS: Coronary artery disease. POSTOPERATIVE DIAGNOSIS: Coronary artery disease. OPERATION: Coronary artery bypass x 5 including left internal mammary artery to left anterior descending artery, saphenous vein to diagonal, marginal 1, and marginal 2 and saphenous vein to posterior descending artery and endoscopic harvest, left greater saphenous vein. SURGEON: Orlando Campoverde M.D. FILM PRODUCER: JESSICA Hartman. ANESTHESIA: General. INDICATIONS: The patient is a 73-year-old with severe 3-vessel coronary artery disease, but had good ventricular function. The patient was seen for Dr. Oseguera. The patient presents with unstable angina. Catheterization demonstrates total occlusion of the LAD and right coronary arteries with collateral filling and high-grade lesions in the diagonals and marginal. FINDINGS AND TECHNIQUE: After general anesthesia was established, saphenous vein was harvested using an endoscopic approach. Exposure was obtained through median sternotomy. Left internal mammary artery was harvested. Pericardial well was made. Cannulation sutures were placed. Heparin was given. Aorta was cannulated. Right atrium was cannulated. Cardioplegia needle was positioned in the aortic root. Retrograde cardioplegic catheter was placed in the coronary sinus. Cardiopulmonary bypass was established. The aorta was cross clamped. Antegrade and then retrograde cardioplegia were given. Ice was poured into the pericardial well. The heart was stopped. During electromechanical arrest, the distal anastomoses were performed and end-to-side anastomosis was made between vein and the posterior descending artery. This was an intramyocardial vessel where bypassed and measured approximately 1.6 mm. Cold cardioplegia was given. Separate segment of vein was sewn in end-to-side fashion to the second marginal. It should be mentioned that all of the vessels were diffusely diseased, but we picked the optimum spot visually for bypass. Second marginal was a 1.5 mm vessel. Cold cardioplegia was given. After the anastomosis was complete, the same segment of vein was [facility] [address] [place] [address] OPERATIVE REPORT Name: JOE BRYANT Room #: 209-P [facility] IN M.R.#: [id number] Admission: 07/31/18 ������������������ Attend Phys: Louis Adler MD Discharge: ������������������ Date of : 43 Report #: [id number] sewn in end-to-side fashion to the first marginal. This was a 1.5 mm vessel. Cold cardioplegia was given. The same segment of vein was sewn in vrzu-hf-yjzy fashion to the second diagonal. This was a 1.4 mm vessel. Cold cardioplegia was given. Left internal mammary artery was sewn in end-to-side fashion to the distal left anterior descending artery where it measured approximately 1.6 mm. The anastomosis was checked with the temperature technique. Cold cardioplegia was given. Two proximal anastomoses were performed. When these were complete, warm retrograde cardioplegia was given followed by warm continuous blood to the coronary sinus. When this infusion was complete, the crossclamp was removed, de-airing maneuvers were performed. The anastomoses were inspected and found to be satisfactory. As the patient warmed, nice cardiac activity resumed, chest tubes and pacing wires were placed. A marker was placed around the proximal anastomoses. When the patient was warmed, he was weaned from cardiopulmonary bypass. Venous cannula was removed. Protamine was given, the aortic cannula was removed. Flows were measured in the bypass grafts. When hemostasis was satisfactory, chest was irrigated with antibiotic solution and closed in the usual fashion. The patient was taken to the intensive care unit in good condition. All counts reported as correct. ��������������������������������������������� <ELECTRONICALLY SIGNED> ���������������������������������������� By: Orlando Campoverde MD ��������������������������������������������� 08/06/18 1216 1658 1715 Orlando Campoverde MD /nt
--- NOTE | 2018-08-06 13:59 | NUR ---
ASSUMMED CARE AT SHIFT CHANGE, ALERT AND ORIENTED X4. UP TO CHAIR MOST OF THE DAY. C/O ABD PAIN MEDICATED, DULCOLEX SUPPOSITORY GIVEN, AND MEDICATED FOR PAIN. VSS AND AFEBRILE. NS ON THE MONITOR. DRESSING TO CHEST AND LLE INTACT. PROGRESSING TOWARDS GOALS AND WILL CONTINUE WITH POC.
[2018-08-06 16:00] VITALS: BP 120/64
--- NOTE | 2018-08-06 17:18 | EKG ---
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 Tank House: Eric ORR : 1945 Requested By: Nnamdi Pineda Order Number: [id number] MD: Gregor Chang Measurements Intervals [place] Rate: 84 P: 2 [place]: 163 QRS: -27 QRSD: 75 T: QT: 429 QTc: 508 Interpretive Statements Sinus rhythm Atrial premature complex Abnormal R-wave progression, early transition Inferior infarct, old Compared to ECG 08/04/2018 07:29:21 Electronically Signed On 08-06-2018 17:17:58 CDT by Gregor Chang [email or web address] ��������������������������������������������� <ELECTRONICALLY SIGNED> ���������������������������������������� By: Gregor Chang MD ��������������������������������������������� 08/06/18 9637 1351 135 Gregor Chang MD /EPI
[2018-08-06 20:34] VITALS: BP 122/69
[2018-08-07 04:47] VITALS: BP 113/74
[2018-08-07 04:57] LABS: CALCIUM 8.1 mg/dL (8.5-10.1); CREATININE 0.9 mg/dL (0.7-1.3)
[2018-08-07 05:02] LABS: HEMATOCRIT 34.4 % (42.0-52.0); HEMOGLOBIN 12.1 gm/dL (14.0-18.0); MCH 31.2 pg (26.0-34.0); MCHC 35.1 g/dL (28.0-37.0); MCV 88.9 fL (80.0-100.0); RBC 3.87 mil/uL (4.50-6.00); RDW 13.6 % (10.5-14.5); WBC 11.9 thou/uL (4.0-11.0)
--- NOTE | 2018-08-07 05:56 | NUR ---
ASSUMED PT'S CARE AT 1930; PT. ON BED; AOX4; ABDOMINAL PAIN 06/21; ST. ABLE TO PASSED GAS AND HAD SEVERAL BM'S THROUGH THE DAY; NO PRN PAIN MEDICATION; ABLE TO AMBULATE FROM BED TO RESTROOM WITH WALKER; TOLERATED WELL; NO O2; VS WNL; NO INSULIN GIVEN; ABLE TO REST THROUGH THE NIGHT WITH EYES CLOSE; ASSESSMENT CHARGED; FOLLOWING POC; MORNING POTASSIUM 3.0; PT. ON MG/K PROTOCOL; WILL REPLACE WITH MORNING MEDS; WILL PASS ON REPORT.
[2018-08-07 11:23] VITALS: BP 128/77
[2018-08-07] MEDS ORDERED: PACERONE 200 M200 M1 PO (11:33)
[2018-08-07] MEDS ORDERED: FERREX 150 PLU1 EAC1 PO (11:33)
[2018-08-07] MEDS ORDERED: CLARITIN10 MG PO (11:33)
[2018-08-07] MEDS ORDERED: ATORVASTATIN CA40 MG PO (11:34)
[2018-08-07] MEDS ORDERED: ADULT LOW DOSE81 MG PO (11:34)
[2018-08-07] MEDS ORDERED: COZAAR 50 MG TA50 M1 PO (11:34)
[2018-08-07] MEDS ORDERED: METOPROLOL SUCC50 MG PO (11:34)
[2018-08-07] MEDS ORDERED: GABAPENTIN 100100 MG PO ×2 (11:35)
[2018-08-07] MEDS ORDERED: HYDROCODON-ACE1 EAC7 PO (11:35)
[2018-08-07] MEDS ORDERED: MUCINEX600 MG PO (11:35)
[2018-08-07] MEDS ORDERED: MELATONIN5 M1 PO (11:36)
[2018-08-07] MEDS ORDERED: MIRALAX17 GM PO (11:36)
[2018-08-07] MEDS ORDERED: SENNA-TIME S T1 EACH PO (11:36)
[2018-08-07] MEDS ORDERED: FLONASE 0.05%50 MCG NASAL (11:36)
[2018-08-07] MEDS ORDERED: MILK OF MA2400 MG/11 PO (11:36)
[2018-08-07] MEDS ORDERED: BISACODYL SUPP10 MG RECTAL (11:36)
--- NOTE | 2018-08-07 13:34 | NUR ---
ASSUMED CARE AT 1000 AM, SHIFT ASSESSMENT DONE, MEDS GIVEN, VSS. DENIES ANY PAIN, NAUSEA, VOMITING. SITTING UP IN THE CHAIR THIS AM. WORKED WITH PHYSICAL AND OCCUPATIONAL THERAPHY, TOOK A SHOWER THIS AM. [facility], NO COVERAGE PER eMAR. POSSIBLE DISCHARGE TOMORROW TO REHAB. WILL CONTINUE TO ASSESS AND ASSIST WITH ADLs NEEDED.
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
[2018-08-07 15:37] VITALS: BP 123/67
[2018-08-07 20:16] VITALS: BP 146/76
--- NOTE | 2018-08-08 03:53 | NUR ---
ASSUME PT'S CARE AT 1900; PT ON BED; AOX4; ST. NO PAIN IF NOT COUGHINH; ST. HAVING LOOSE STOOLS DURING THE DAY; THROUGH THE NIGHT PT'S STOOLS ARE LOOSE; BROWN-YELLOW; CALL EVERYTIME THAT NEEDS TO GO TO BATHROOM; SOB WITH EXERTION; REFUSED O2; POTASSIUM 3.3 AT 1915; REPLACED PER PROTOCOL; POTASSIUM REASSESSMENT 3.5; WILL MONITOR IN THE MORNING; ABLE TO REST THROUGH THE NIGHT; FAMILY STAYED WITH PT. DURING THE NIGHT; VS WNL; ASSESSMENT CHARGED; FOLLOWING POC; WILL PASS ON REPORT.
[2018-08-08 04:45] VITALS: BP 128/65
[2018-08-08 08:11] VITALS: BP 149/75
[2018-08-08 13:46] VITALS: BP 120/67
[2018-08-08 16:07] VITALS: BP 141/86
--- NOTE | 2018-08-08 18:14 | NUR ---
ASSUMED CARE OF PT AT 0645. C/O FEELING CONSTIPATED DESPITE HAVING LOOSE STOOLS. UP WITH THERAPY. WAITING FOR INSURANCE AUTH FOR SNF. AT BEDSIDE, WANDERING AROUND HOSPITAL, BROUGHT BACK BY SECURITY. POOR APPETITE. PROGRESSING TOWARD PLAN OF CARE.
[2018-08-08 20:41] VITALS: BP 126/63
[2018-08-09 04:43] VITALS: BP 142/76
--- NOTE | 2018-08-09 05:21 | NUR ---
ASSUMED PT CARE AT 1900. VSS. PT A&0X4. HE COMPLAINS OF MILD PAIN BUT DENIES ANY NEED FOR PAIN MEDICINE. HE IS STEADY ON HIS FEET AND GETS UP WITH 1 ASSIST. PT HAD A BM X3 THIS SHIFT. AT BEDSIDE. NO COMPLAINTS OF DISTRESS OVERNIGHT. [facility]ANCE [facility]SFER, WILL CONTINUE TO MONITOR PER POC
[2018-08-09 07:28] VITALS: BP 118/62
[2018-08-09 11:28] VITALS: BP 120/72
--- NOTE | 2018-08-09 13:29 | EKG ---
[place] [address] [facility] [place] [address] ELECTROCARDIOGRAM REPORT Name: JOE BRYANT Room #: 209-P ADM IN M.R.#: [id number] ������������������ Admission: 07/31/18 ������������������ Attend Phys: Louis Adler MD Discharge: ������������������ Date of : 43 Report #: [id number] ����������������������������������������������������������������� [id number] THIS REPORT FOR: //name// [facility] Test Date: 2018-08-08 Test Time: 07:01:25 Pat Name: JOE BRYANT Department: Room: 209 P Gender: M 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 : 1945 Requested By: Darrell Whalen Order Number: [id number] MD: Ochoa Hunter Measurements Intervals [employer] Rate: 84 P: 0 [place]: 163 QRS: -28 QRSD: 67 T: 131 QT: 373 QTc: 441 Interpretive Statements Sinus rhythm Atrial premature complexes Abnormal R-wave progression, early transition Inferior infarct, old Nonspecific T wave abnormality Compared to ECG 08/06/2018 13:51:35 No significant changes Electronically Signed On 08-09-2018 13:28:44 CDT by Ochoa Hunter [email or web address] ��������������������������������������������� <ELECTRONICALLY SIGNED> ���������������������������������������� By: Ochoa Hunter MD, [facility] ��������������������������������������������� 08/09/18 1328 07 0 Ochoa Hunter MD, [facility] /EPI
[2018-08-09 16:30] VITALS: BP 135/65
--- NOTE | 2018-08-09 18:20 | NUR ---
ASSUMED CARE AT 0730, AWAKE AND ALERT. NO COMPLAINTS OF PAIN OR NAUSEA. SLEEPING ON COUCH. SA ON MONITOR WITH PVCS. MIDSTERNAL SURGICAL INCISION INTACT WITH [facility] DRESSING. OOB TO CHAIR WITH ASSIST. WAITING FOR INSURANCE AUTH SO THAT HE CAN PROCEED TO CARDIAC REHAB.
[2018-08-09 20:09] VITALS: BP 117/58
--- NOTE | 2018-08-10 03:44 | NUR ---
ASSUMED CARE 1899. VSS. ASSESSMENT CHARTED. PT DENIES CP, N/V, OR CONCERN. PT ST BY WITH WALKER TO BATHROOM- SLIGHT SOA WITH EXCERTION. SMALL BM NOT OBSERVED. MIDLINE DRESSING CDI, LLE DRESSINGS CDI. PT STATED AWAITING INSURANCE APPROVAL FOR D/C SOON. PT SLEEPING WELL THROUGHOUT NIGHT. WILL CONTINUE TO MONITOR AND WITH POC.
[2018-08-10 03:57] VITALS: BP 148/75
[2018-08-10 07:12] VITALS: BP 143/84
[2018-08-10] MEDS ORDERED: PACERONE 200 M200 M1 PO (09:07)
--- NOTE | 2018-08-10 10:05 | NUR ---
FAXED PT/OT NOTES TO [facility] SPOKE WITH LUIS ANTONIO IN ADM.SHE WILL SUBMIT THE NOTES FOR AUTH. DCP TO FOLLOW.
[2018-08-10 11:39] VITALS: BP 136/84
[2018-08-10 12:22] VITALS: BP 136/84
--- NOTE | 2018-08-10 13:51 | NUR ---
patient to dc to [facility] skilled today. Updated patient wc van to [facility] at [phone] to ride with patient to [facility]. Chart copied, orders faxed no further needs
== END 2018-08-10 16:00 | DRG 233 ==
LOC: ER 10:49 → EROBS 12:08 → ICU 12:08 → 2N 12:08 → ICU 08-03 11:38 → 2N 08-05 23:58
PROVIDERS: Emergency Medicine; Internal Medicine Cardiovascular Disease; Physician Assistant; Surgery Vascular Surgery; ADMIT Internal Medicine Geriatric Medicine
DX: I21.4 Non-ST elevation (NSTEMI) myocardial infarction (principal); J96.90 Respiratory failure, unspecified, unspecified whether with hypoxia or hypercapnia; D62 Acute posthemorrhagic anemia; I25.10 Atherosclerotic heart disease of native coronary artery without angina pectoris; K59.00 Constipation, unspecified; M48.061 Spinal stenosis, lumbar region without neurogenic claudication; E78.5 Hyperlipidemia, unspecified; G47.33 Obstructive sleep apnea (adult) (pediatric); I10 Essential (primary) hypertension; N40.0 Benign prostatic hyperplasia without lower urinary tract symptoms; E11.42 Type 2 diabetes mellitus with diabetic polyneuropathy; Z79.84 Long term (current) use of oral hypoglycemic drugs; Z88.8 Allergy status to other drugs, medicaments and biological substances; Z82.49 Family history of ischemic heart disease and other diseases of the circulatory system; Z82.3 Family history of stroke; Z79.899 Other long term (current) drug therapy; Z83.3 Family history of diabetes mellitus
CPT/HCPCS: 10078; 10081; 10194; 47000; 47001; 47002; 47297; 48888; 50010; 50249; 50409; 50456; 50498; 50668; 51301; 52131; 52259; 52314; 53327; 53358; 54118; 56524; 56525; 56526; 56527; 56528; 56531; 56534; 56668; 56760; 56898; 57093; 57116; 62110; 62950; 65003; 65020; 65047; 65135

== ENCOUNTER → 2019-05-11 | Outpatient (CLI) | payer OTHER ==
[~2019-05-11] MED LIST: ADULT LOW DOSE81 MG PO; ATORVASTATIN CA40 MG PO; BISACODYL SUPP10 MG RECTAL; CLARITIN10 MG PO; COZAAR 50 MG TA50 M1 PO; FERREX 150 PLU1 EAC1 PO; FLONASE 0.05%50 MCG NASAL; GABAPENTIN 100100 MG PO; HYDROCODON-ACE1 EAC7 PO; MELATONIN5 M1 PO; METOPROLOL SUCC50 MG PO; MILK OF MA2400 MG/11 PO; MIRALAX17 GM PO; MUCINEX600 MG PO; PACERONE 200 M200 M1 PO; SENNA-TIME S T1 EACH PO
== END ==
LOC: SJCVC 14:00
DX: I21.29 ST elevation (STEMI) myocardial infarction involving other sites (principal); R94.31 Abnormal electrocardiogram [ECG] [EKG]; I25.10 Atherosclerotic heart disease of native coronary artery without angina pectoris; E11.40 Type 2 diabetes mellitus with diabetic neuropathy, unspecified; I10 Essential (primary) hypertension; I25.5 Ischemic cardiomyopathy; E78.00 Pure hypercholesterolemia, unspecified; Z79.82 Long term (current) use of aspirin; Z79.899 Other long term (current) drug therapy; Z95.5 Presence of coronary angioplasty implant and graft